=== PATIENT | male | born 1945 | race Caucasian/White ===

== ENCOUNTER 2021-04-20 11:04 | Outpatient (CLI) | payer MEDICARE, SELFPAY ==
--- NOTE | 2021-04-20 10:30 | DI.RAD_ITS ---
Exam(s) XR KNEE RT 3V AP,LAT,LASHON EXAM: XR KNEE RT 3V AP,LAT,LASHON CLINICAL HISTORY: pain in knee for 3-4 years. TECHNIQUE: 2D digital imaging was performed. COMPARISON: No exams were available for comparison FINDINGS: BONES: No acute fracture is present. No bony destructive lesion is seen. JOINTS: The knee is normally aligned. No joint effusion is seen. moderate narrowing lateral femoral tibial joint. Mild to moderate periarticular spurring throughout. SOFT TISSUE: Vascular calcification.. IMPRESSION: Degenerative changes greatest of the lateral femoral tibial joint. DATA REPOSITORY: RADIATION DOSE DELIVERED:
== END 2021-04-20 11:05 | disposition home or self-care (01) ==
LOC: DIORS 11:04
PROVIDERS: PCP Family Medicine; Referring Provider Family Medicine; Visit Provider Student in an Organized Health Care Education/Training Program
DX: M25.561 Pain in right knee (principal); M17.11 Unilateral primary osteoarthritis, right knee
CPT/HCPCS: 20610; 73562; 99203; J1040

== ENCOUNTER → 2021-07-16 13:57 | Outpatient (BNVA) | payer MEDICARE, SELFPAY | PROVIDERS: PCP Family Medicine; Referring Provider Family Medicine; Visit Provider Psychiatry & Neurology Neurology | DX: R29.2 Abnormal reflex (principal); M47.12 Other spondylosis with myelopathy, cervical region | CPT/HCPCS: 99214 ==

== ENCOUNTER → 2021-09-22 09:57 | Outpatient (BNVA) | payer MEDICARE, SELFPAY | PROVIDERS: PCP Family Medicine; Referring Provider Family Medicine; Visit Provider Psychiatry & Neurology Neurology | DX: M47.12 Other spondylosis with myelopathy, cervical region (principal); R29.2 Abnormal reflex | CPT/HCPCS: 99214 ==

== ENCOUNTER → 2021-10-19 10:11 | Outpatient (BNVA) | payer MEDICARE, SELFPAY | PROVIDERS: PCP Family Medicine; Referring Provider Family Medicine; Visit Provider Psychiatry & Neurology Neurology | DX: R26.81 Unsteadiness on feet (principal); M47.12 Other spondylosis with myelopathy, cervical region; M48.061 Spinal stenosis, lumbar region without neurogenic claudication; R29.2 Abnormal reflex; R41.3 Other amnesia | CPT/HCPCS: 99215 ==

== ENCOUNTER → 2021-11-25 12:22 | Outpatient (BNVA) | payer MEDICARE, SELFPAY | PROVIDERS: PCP Family Medicine; Referring Provider Family Medicine; Visit Provider Psychiatry & Neurology Neurology | DX: R29.2 Abnormal reflex (principal); M47.12 Other spondylosis with myelopathy, cervical region; M48.061 Spinal stenosis, lumbar region without neurogenic claudication; Z79.82 Long term (current) use of aspirin; R41.3 Other amnesia | CPT/HCPCS: 99214 ==

== ENCOUNTER → 2021-12-28 13:12 | Outpatient (BNVA) | payer MEDICARE, SELFPAY | PROVIDERS: PCP Family Medicine; Referring Provider Family Medicine; Visit Provider Psychiatry & Neurology Neurology | DX: R29.2 Abnormal reflex (principal); M47.12 Other spondylosis with myelopathy, cervical region; G62.89 Other specified polyneuropathies; M48.061 Spinal stenosis, lumbar region without neurogenic claudication; R26.81 Unsteadiness on feet; R41.3 Other amnesia | CPT/HCPCS: 95885; 95909; 99214 ==

== ENCOUNTER 2022-05-18 02:17 | Outpatient (CLI) | payer MEDICARE, SELFPAY ==
[2022-05-18 09:01] LABS: HCT 42.4 % (40.0-50.0); HGB 14.6 g/dL (13.5-17.5); MCH 34.2 pg (27.0-33.0); MCHC 34.4 % (32.0-36.0); MCV 99 fL (80-95); MPV 9.5 fL (8.0-11.0); Platelet Count 154 10^3/uL (130-400); RBC 4.27 10^6/uL (4.36-5.78); RDW 12.8 % (11.8-14.1); WBC 5.24 10^3/uL (4.4-10.8)
[2022-05-18 10:00] LABS: ALT 39 U/L (16-63); AST 25 U/L (15-37); Albumin 3.5 g/dL (3.4-5.0); Alkaline Phosphatase 76 U/L (46-116); Anion Gap 4.6 mmol/L (3-11); BUN 16 mg/dL (7-18); Bilirubin, Total 0.7 mg/dL (0.2-1.0); CO2 30.4 mmol/L (21.0-32.0); Calcium 8.8 mg/dL (8.5-10.1); Calculated LDL 98 mg/dL (<100); Chloride 107 mmol/L (98-107); Cholesterol 156 mg/dL (<200); Glucose 90 mg/dL (74-106); HDL Cholesterol 43 mg/dL (40-60); Potassium 4.4 mmol/L (3.5-5.1); Sodium 142 mmol/L (136-145); Total Protein 7.6 g/dL (6.4-8.2); Triglyceride 76 mg/dL (<150)
[2022-05-18 18:41] LABS: PSA, Screening 5.3 ng/mL (<=6.5)
== END 2022-05-18 02:18 | disposition home or self-care (01) ==
LOC: LBO 02:17
PROVIDERS: PCP Nurse Practitioner; Visit Provider Nurse Practitioner
DX: E78.5 Hyperlipidemia, unspecified (principal); N40.0 Benign prostatic hyperplasia without lower urinary tract symptoms; R97.20 Elevated prostate specific antigen [PSA]; Z12.5 Encounter for screening for malignant neoplasm of prostate
CPT/HCPCS: 36415; 80053; 80061; 84153; 85027

== ENCOUNTER → 2022-06-23 10:42 | Outpatient (BNVA) | payer MEDICARE, SELFPAY | PROVIDERS: PCP Nurse Practitioner; Visit Provider Psychiatry & Neurology Neurology | DX: M47.12 Other spondylosis with myelopathy, cervical region (principal); R29.2 Abnormal reflex; R41.3 Other amnesia; R26.81 Unsteadiness on feet; M48.061 Spinal stenosis, lumbar region without neurogenic claudication | CPT/HCPCS: 99214 ==

== ENCOUNTER 2022-09-07 16:13 | Outpatient (REF) | payer MEDICARE, SELFPAY ==
[2022-09-07 19:46] LABS: Vitamin D 25 Total 27.6 ng/mL (30-100)
[2022-09-07 19:57] LABS: TSH (W/Ref FT4) 1.07 uIU/mL (0.36-3.74); Vitamin B12 330 pg/mL (193-986)
[2022-09-10 11:45] LABS: Lyme Ab w Rflx to Lyme Confirm Negative (Negative)
== END 2022-09-07 16:14 | disposition home or self-care (01) ==
LOC: LBN 16:13
PROVIDERS: PCP Nurse Practitioner; Visit Provider Nurse Practitioner
DX: E55.9 Vitamin D deficiency, unspecified; R53.83 Other fatigue
CPT/HCPCS: 82306; 87798; 82607; 84443; 86618

== ENCOUNTER → 2023-05-10 11:21 | Outpatient (BNVA) | payer MEDICARE, SELFPAY | PROVIDERS: PCP Nurse Practitioner; Referring Provider Nurse Practitioner; Visit Provider Psychiatry & Neurology Neurology | DX: R29.2 Abnormal reflex (principal); M47.12 Other spondylosis with myelopathy, cervical region; R41.3 Other amnesia; M48.061 Spinal stenosis, lumbar region without neurogenic claudication; R26.81 Unsteadiness on feet | CPT/HCPCS: 99215 ==

== ENCOUNTER 2023-05-12 05:48 | Outpatient (CLI) | payer MEDICARE, SELFPAY ==
[2023-05-12 13:00] LABS: Vitamin B12 415 pg/mL (193-986)
[2023-05-12 13:42] LABS: Vitamin D 25 Total 26.9 ng/mL (30-100)
== END 2023-05-12 05:49 | disposition home or self-care (01) ==
LOC: LOS 05:48
PROVIDERS: PCP Nurse Practitioner; Visit Provider Nurse Practitioner Family
DX: E55.9 Vitamin D deficiency, unspecified (principal); E53.8 Deficiency of other specified B group vitamins
CPT/HCPCS: 36415; 82306; 82607

== ENCOUNTER → 2023-06-29 07:59 | Outpatient (BNVA) | payer MEDICARE, SELFPAY | PROVIDERS: PCP Nurse Practitioner; Referring Provider Nurse Practitioner; Visit Provider Nurse Practitioner Gerontology | DX: N40.1 Benign prostatic hyperplasia with lower urinary tract symptoms (principal); R39.12 Poor urinary stream; R97.20 Elevated prostate specific antigen [PSA] | CPT/HCPCS: 51798; 81003; 99214 ==

== ENCOUNTER → 2023-07-07 10:15 | Outpatient (BNVA) | payer MEDICARE, SELFPAY | PROVIDERS: PCP Nurse Practitioner; Referring Provider Nurse Practitioner; Visit Provider Student in an Organized Health Care Education/Training Program | DX: M17.11 Unilateral primary osteoarthritis, right knee (principal) | CPT/HCPCS: 99213 ==

== ENCOUNTER 2023-10-12 02:25 | Outpatient (CLI) | payer MEDICARE, SELFPAY ==
[2023-10-12 10:15] LABS: HCT 43.4 % (40.0-50.0); MCH 34.7 pg (27.0-33.0); MCHC 34.6 % (32.0-36.0); MCV 101 fL (80-95); MPV 9.9 fL (8.0-11.0); Platelet Count 148 10^3/uL (130-400); RBC 4.32 10^6/uL (4.36-5.78); RDW 12.7 % (11.8-14.1); RDW-SD 47.2 fL; WBC 5.82 10^3/uL (4.4-10.8)
[2023-10-12 11:16] LABS: ALT 22 U/L (16-63); AST 22 U/L (15-37); Albumin 3.8 g/dL (3.4-5.0); Alkaline Phosphatase 69 U/L (46-116); Anion Gap 9.5 mmol/L (3-11); BUN 20 mg/dL (7-18); CO2 26.5 mmol/L (21.0-32.0); CREATININE 1.1 mg/dL (0.70-1.30); Calcium 8.9 mg/dL (8.5-10.1); Calculated LDL 87 mg/dL (<100); Chloride 106 mmol/L (98-107); Cholesterol 158 mg/dL (<200); Estimated GFR 69.14 (mL/min/1.73m2); Glucose 97 mg/dL (74-106); HDL Cholesterol 51 mg/dL (40-60); Potassium 4.3 mmol/L (3.5-5.1); Sodium 142 mmol/L (136-145); Total Protein 7.2 g/dL (6.4-8.2); Triglyceride 101 mg/dL (<150); Vitamin D 25 Total 30.9 ng/mL (30-100)
[2023-10-12 19:01] LABS: PSA, Diagnostic 5.6 ng/mL (<=6.5)
== END 2023-10-12 02:26 | disposition home or self-care (01) ==
LOC: LBO 02:25
PROVIDERS: PCP Nurse Practitioner; Visit Provider Nurse Practitioner Gerontology
DX: N40.0 Benign prostatic hyperplasia without lower urinary tract symptoms (principal); R97.20 Elevated prostate specific antigen [PSA]; E78.5 Hyperlipidemia, unspecified; R41.3 Other amnesia; E55.9 Vitamin D deficiency, unspecified
CPT/HCPCS: 36415; 80053; 80061; 82306; 85027; 84153

== ENCOUNTER → 2023-10-19 09:53 | Outpatient (BNVA) | payer MEDICARE, SELFPAY | PROVIDERS: PCP Nurse Practitioner; Referring Provider Nurse Practitioner; Visit Provider Nurse Practitioner Gerontology | DX: N40.0 Benign prostatic hyperplasia without lower urinary tract symptoms (principal); R97.20 Elevated prostate specific antigen [PSA] | CPT/HCPCS: 51798; 99213 ==

== ENCOUNTER 2023-11-23 01:23 | Outpatient (CLI) | payer MEDICARE, SELFPAY ==
--- NOTE | 2023-11-23 07:00 | DI.RAD_ITS ---
Exam(s) XR KNEE LT 3V AP,LAT,LASHON EXAM: XR KNEE LT 3V AP,LAT,LASHON CLINICAL HISTORY: left knee pain,M25.562. TECHNIQUE: 2D digital imaging was performed. Three views. COMPARISON: CR XR KNEE RT 3V AP,LAT,LASHON from 04/20/2021 FINDINGS: BONES: No acute fracture is present. No bony destructive lesion is seen. JOINTS: The knee is normally aligned. No joint effusion is seen. The joint spaces are maintained. Minimal degenerative changes. SOFT TISSUE: Normal. IMPRESSION: Minimal degenerative changes. DATA REPOSITORY: RADIATION DOSE DELIVERED:
== END 2023-11-23 01:43 ==
LOC: DI 01:23
PROVIDERS: PCP Nurse Practitioner; Visit Provider Nurse Practitioner
DX: M25.562 Pain in left knee (principal)
CPT/HCPCS: 73562

== ENCOUNTER → 2023-12-01 08:49 | Outpatient (BNVA) | payer MEDICARE, SELFPAY | PROVIDERS: PCP Nurse Practitioner; Referring Provider Nurse Practitioner; Visit Provider Psychiatry & Neurology Neurology | DX: M48.061 Spinal stenosis, lumbar region without neurogenic claudication (principal); M54.16 Radiculopathy, lumbar region; R26.81 Unsteadiness on feet; R41.3 Other amnesia | CPT/HCPCS: 95885; 95887; 95908; 99215 ==

== ENCOUNTER 2023-12-27 01:22 | Outpatient (CLI) | payer MEDICARE, SELFPAY ==
--- NOTE | 2023-12-27 06:30 | DI.MRI_ITS ---
Exam(s) MR LOWER JOINT LT WO EXAM: MR LOWER JOINT LT WO CLINICAL HISTORY: Left knee pain,falls,m25.562,r29.6. TECHNIQUE: Multiplanar multisequence MRI was performed. COMPARISON: CR XR KNEE LT 3V AP,LAT,LASHON from 11/23/2023 FINDINGS: BONES: There is no fracture or contusion pattern. JOINTS: At the patellofemoral joint there is moderate cartilage thinning and subchondral edema presen t. There is also mild thinning of the articular cartilage in the medial femoral tibial joint. No ef fusion is present. TENDONS: Extensor mechanism: Unremarkable. Medial retinaculum: Unremarkable. Lateral retinaculum: Unremarkable. Popliteus: Unremarkable. MUSCLES: Unremarkable. MENISCI: There is a large tear of the body and posterior horn of the medial meniscus. There is degen eration of the lateral meniscus. SOFT TISSUES: There is mild edema seen in the soft tissues around the knee. There is a small poplite al cyst. LIGAMENTS: Anterior Cruciate: Unremarkable. Posterior Cruciate: Unremarkable. Medial Collateral:Unremarkable. Lateral Collateral: Unremarkable. OTHER: IMPRESSION: 1. Large tear of the body and posterior horn of the medial meniscus. 2. No evidence of a ligament tear. 3. 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 4. No evidence of a fracture. 5. Small popliteal cyst and edema in the soft tissues around the knee. DATA REPOSITORY:
== END 2023-12-27 01:42 ==
LOC: DI 01:22
PROVIDERS: PCP Nurse Practitioner; Visit Provider Nurse Practitioner
DX: M23.222 Derangement of posterior horn of medial meniscus due to old tear or injury, left knee (principal); R29.6 Repeated falls
CPT/HCPCS: 73721

== ENCOUNTER 2024-01-16 01:28 | Outpatient (CLI) | payer MEDICARE, SELFPAY ==
--- NOTE | 2024-01-16 06:15 | DI.CT_ITS ---
Exam(s) CT HEAD WO EXAM: CT HEAD WO CLINICAL HISTORY: falls, dizziness for a few months.R29.6,R42. TECHNIQUE: Imaging Protocol: Axial computed tomography images with coronal and sagittal reformatted images were created and reviewed COMPARISON: MR MR C SPINE WO CONTRAST from 04/25/2015 FINDINGS: Ventricles and Extra axial spaces: The ventricular size appears prominent compared to the sulcal size raising the question of NPH. Hemorrhage: None. Cerebral parenchyma: No evidence of an acute territorial infarct. No mass effect is identified. The do appear to be subtle areas of decreased attenuation in the white matter suggesting chronic microva scular ischemic disease. Midline shift: None. Brainstem/Cerebellum: Normal. Calvarium: Normal. Visualized Paranasal sinuses/Mastoids: Clear. Soft Tissues: Unremarkable. IMPRESSION: Prominence of the ventricles seemingly out of proportion to the sulcal size raising the question of N PH. MRI should be considered for further evaluation. RADIATION DOSE DELIVERED: 862.46mGy.cm Total DLP DATA REPOSITORY: All CT scans at this facility are submitted to the National Radiology Data Registry (NRDR) Dose Index Registry (DIR) with the [employer] (ACR). RADIATION OPTIMIZATION: All CT scans at this facility use at least one of these dose optimization te chniques: automated exposure control; mA and/or kV adjustment per patient size (includes targeted exa ms where dose is matched to clinical indication); or iterative reconstruction.
--- NOTE | 2024-01-16 06:15 | DI.MRI_ITS ---
Exam(s) MR LOWER JOINT RT WO EXAM: MR LOWER JOINT RT WO CLINICAL HISTORY: right knee pain,RECURRENT RT KNEE INSTABILITY, M23.51,M25.561. TECHNIQUE: Multiplanar multisequence MRI was performed. COMPARISON: There are no priors for comparison. FINDINGS: BONES: There is no fracture or contusion pattern. JOINTS: In the lateral femoral tibial joint, there is marked loss of the articular cartilage, endplat e osteophytes and subchondral edema. There is also thinning of the articular cartilage overlying the medial femoral condyle. Small osteophytes are also seen in the medial femoral tibial joint and the patellofemoral joint. There is a small amount of fluid in the joint space. TENDONS: Extensor mechanism: Unremarkable. Medial retinaculum: Unremarkable. Lateral retinaculum: Unremarkable. Popliteus: Unremarkable. MUSCLES: Unremarkable. MENISCI: There is degenerative signal seen in the body and posterior horn of the medial meniscus. Th ere is hyperintense signal seen in the posterior horn of the medial meniscus on the sagittal images ( image 31) consistent with a tear. There is significant loss in size and abnormal signal seen through out the lateral meniscus predominantly in the body and posterior horn. This is consistent with menis callie tear. SOFT TISSUES: There is edema seen in the soft tissues around the knee. There is a small fluid collec tion seen arising from the proximal tibial fibular joint. LIGAMENTS: Anterior Cruciate: The distal anterior cruciate ligament is poorly defined with abnormal signal which may represent a chronic tear. Posterior Cruciate: Unremarkable. Medial Collateral:Unremarkable. Lateral Collateral: Unremarkable. OTHER: IMPRESSION: 1. Chronic loss of volume and abnormal signal seen throughout the lateral meniscus consistent with a tear. 2. Hyperintense signal seen in the posterior horn of the medial meniscus consistent with a tear. Und erlying degenerative changes are also seen in the medial meniscus. 3. Abnormal thickening and abnormal signal seen within the distal anterior cruciate ligament suspicio us for a tear. 4. Arthritic changes in the knee particularly involving the lateral femoral tibial joint. DATA REPOSITORY:
== END 2024-01-16 01:48 ==
LOC: DI 01:28
PROVIDERS: PCP Nurse Practitioner; Visit Provider Nurse Practitioner
DX: S83.281A Other tear of lateral meniscus, current injury, right knee, initial encounter (principal); X58.XXXA Exposure to other specified factors, initial encounter
CPT/HCPCS: 73721; 70450

== ENCOUNTER 2024-01-31 01:36 | Outpatient (CLI) | payer MEDICARE, SELFPAY ==
--- NOTE | 2024-01-31 06:45 | DI.MRI_ITS ---
Exam(s) MR BRAIN WO EXAM: MR BRAIN WO CLINICAL HISTORY: ?NPH, gait disturbances, urinary incont, memory impairment,abnl head ct, TECHNIQUE: Multiplanar multisequence MRI of the brain was performed. COMPARISON: CT CT HEAD WO from 01/16/2024 FINDINGS: CEREBRAL PARENCHYMA: There is no evidence of intracranial hemorrhage, mass effect, or shift of midline structures. There are no extra-axial fluid collections. There is no significant focal signal abnormality in the cerebellar hemispheres nor within the juan, m idbrain, and thalami. There is a small 3 mm focus of FLAIR bright signal abnormality in the posterior left periventricular white matter, not associated with hemorrhage nor surrounding edema nor restricted diffusion. The size of lateral and 3rd ventricles is again noted be prominent when compared to the size of the o verlying cortical sulci. Suspicious for normal pressure hydrocephalus. There does not appear to be abnormal signal around both lateral ventricles. There is no significant focal signal abnormality evident on diffusion imaging to suggest acute ischem ic event. SWI imaging reveals no evidence of microhemorrhages. PITUITARY GLAND: No mass nor parasellar abnormality. No obvious abnormality in the cavernous sinuses. FLOW VOIDS: The expected flow void are noted. No evidence of obvious aneurysm nor obvious vascular ma lformation. The right vertebral artery is dominant. Left vertebral artery at the skull base does not contribute to the formation of the basilar artery. PARANASAL SINUSES: There is some mild mucosal thickening in the right maxillary sinus, not associated with a fluid level. Left maxillary sinus and other paranasal sinuses are clear, as are the mastoid air cells. ORBITS: No obvious findings. Previous bilateral cataract surgery. IMPRESSION: There is enlargement of the lateral and 3rd ventricles. Normal size 4th ventricle. Correlation with any clinical signs of normal pressure hydrocephalus recommended. Other consideration would be for a queduct stenosis at the level the midbrain tectum. There is no mass seen at this level. There is a single small focus of FLAIR bright signal abnormality in the left periventricular white ma tter, not associated with hemorrhage, surrounding edema, nor restricted diffusion. There is no evide nce of hemorrhage nor acute ischemic event. DATA REPOSITORY:
== END 2024-01-31 01:56 ==
LOC: DI 01:36
PROVIDERS: PCP Nurse Practitioner; Visit Provider Nurse Practitioner
DX: R93.0 Abnormal findings on diagnostic imaging of skull and head, not elsewhere classified (principal)
CPT/HCPCS: 70551

== ENCOUNTER 2024-02-02 10:03 | Outpatient (CLI) | payer MEDICARE, SELFPAY ==
--- NOTE | 2024-02-02 09:30 | DI.MRI_ITS ---
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 Both noninfused and contrast i nfused sequences were performed. IV Contrast injected was 17 cc Dotarem. COMPARISON: MR MR BRAIN WO from 01/31/2024 FINDINGS: CEREBRAL PARENCHYMA: Again noted is prominence the lateral and 3rd ventricles when compared to the si ze of the overlying cortical sulci but with out significant periventricular signal abnormality as is often seen in normal pressure hydrocephalus. There is again noted small 3 mm focus of FLAIR bright s ignal abnormality in the posterior left periventricular white matter which is not associated with hem orrhage, surrounding edema, nor restricted diffusion and which also does not exhibit enhancement foll owing contrast injection. There are no new foci of signal abnormality in the brain. No areas of restricted diffusion. There are no ring enhancing lesions and no abnormal meningeal enhancement. There are no lesions seen in th e region of the midbrain and tectum nor evidence of pineal gland abnormality nor abnormal mass in the quadrigeminal cistern. No evidence of mass within the juan nor within the cerebellar hemispheres. There is no significant cerebellar tonsillar ectopia. The T2 weighted thin sub mm slice thickness images reveal no evidence of mass in the cerebellopontine angles nor intra canalicular mass within the internal auditory canals and the appearance of the trig eminal nerves and Meckel's caves appear unremarkable. There does not appear to be mass with in nor c ompressing the aqueduct of Sylvius. The size of the 4th ventricle also appears slightly prominent. No evidence of microhemorrhages on SWI. PITUITARY GLAND: No mass nor parasellar abnormality. No obvious abnormality in the cavernous sinuses. FLOW VOIDS: The expected flow void are noted. No evidence of obvious aneurysm nor obvious vascular ma lformation. PARANASAL SINUSES: The visualized paranasal sinuses appear unremarkable. ORBITS: Previous bilateral cataract surgery. No obvious abnormal findings. IMPRESSION: 1. There is no evidence of mass within the aqueduct of [place] nor evidence of adjacent mass compress ing the aqueduct of [place] to explain the enlargement of the lateral and 3rd ventricles. 2. There are no ring enhancing nor other enhancing intra-axial lesions in the brain and there is no abnormal meningeal enhancement. 3. Small 3 mm nonspecific focus of signal abnormality in the posterior left periventricular white ma tter is again noted, not associated with hemorrhage, surrounding edema, enhancement, nor restricted d iffusion. DATA REPOSITORY:
[2024-02-02] MEDS: Normal Saline Flush 10 ML SYR IVP (15:32)
[2024-02-02] MEDS: Gadoterate meglumine 20 ML SYRINGE 17 ML IVP (15:33)
== END 2024-02-02 10:23 ==
LOC: DI 10:05
PROVIDERS: PCP Nurse Practitioner; Visit Provider Psychiatry & Neurology Neurology
DX: G91.1 Obstructive hydrocephalus (principal)
CPT/HCPCS: 70553

== ENCOUNTER → 2024-03-22 10:04 | Outpatient (BNVA) | payer MEDICARE, SELFPAY | PROVIDERS: PCP Nurse Practitioner; Referring Provider Nurse Practitioner; Visit Provider Student in an Organized Health Care Education/Training Program | DX: M47.12 Other spondylosis with myelopathy, cervical region (principal); M48.061 Spinal stenosis, lumbar region without neurogenic claudication; M17.11 Unilateral primary osteoarthritis, right knee; R26.81 Unsteadiness on feet; S83.242A Other tear of medial meniscus, current injury, left knee, initial encounter; X58.XXXA Exposure to other specified factors, initial encounter | CPT/HCPCS: 20610; J1010 ==

== ENCOUNTER 2024-04-12 01:11 | Outpatient (CLI) | payer MEDICARE, SELFPAY ==
[2024-04-12 18:36] LABS: PSA, Diagnostic 6.2 ng/mL (<=6.5)
[2024-04-13 10:06] LABS: Lyme Ab w Rflx to Lyme Confirm Negative (Negative)
[2024-04-15 16:41] LABS: Anaplasma phagocytophilum Negative (Negative); B. miyamotoi PCR Negative (Negative); Babesia divergens/MO-1 Negative (Negative); Babesia duncani Negative (Negative); Babesia microti Negative (Negative); Ehrlichia chaffeensis Negative (Negative); Ehrlichia ewingii/canis Negative (Negative); Ehrlichia muris eauclairensis Negative (Negative)
== END 2024-04-12 01:12 | disposition home or self-care (01) ==
LOC: LBO 01:11
PROVIDERS: PCP Nurse Practitioner; Visit Provider Nurse Practitioner Gerontology
DX: R97.20 Elevated prostate specific antigen [PSA] (principal); N40.0 Benign prostatic hyperplasia without lower urinary tract symptoms; R42 Dizziness and giddiness; R29.6 Repeated falls
CPT/HCPCS: 36415; 87798; 84153; 86618

== ENCOUNTER → 2024-04-25 11:02 | Outpatient (BNVA) | payer MEDICARE, SELFPAY | PROVIDERS: PCP Nurse Practitioner; Referring Provider Nurse Practitioner; Visit Provider Nurse Practitioner Gerontology | DX: N40.0 Benign prostatic hyperplasia without lower urinary tract symptoms (principal); R97.20 Elevated prostate specific antigen [PSA] | CPT/HCPCS: 51798; 99213 ==

== ENCOUNTER 2024-06-04 07:54 | Outpatient (CLI) | payer MEDICARE, SELFPAY ==
--- NOTE | 2024-06-04 07:45 | RT.EKG_ITS ---
APPROVED REPORT Exam: Resting ECG Reason for Exam: pre-op exam Patient Location: O HR:55 bpm ECG Measurements Heart Rate 55 AXIS WV 204 P 38 QRSd 86 QRS -3 QT 394 T 25 QTc 377 Conclusion Sinus rhythm...normal P axis, V-rate 50- 99 Abnormal R-wave progression, early transition...QRS area>0 in V2 Otherwise normal ECG
== END 2024-06-04 07:55 | disposition home or self-care (01) ==
LOC: DI.KIM 07:55
PROVIDERS: PCP Nurse Practitioner; Visit Provider Nurse Practitioner
DX: Z01.818 Encounter for other preprocedural examination (principal)
CPT/HCPCS: 93010

== ENCOUNTER 2024-06-05 03:55 | Outpatient (CLI) | payer MEDICARE, SELFPAY ==
[2024-06-05 10:26] LABS: Abs Immature Grans 0.02 10^3/uL (0.0-0.06); Absolute Basophil Count 0.02 10^3/uL (0.0-0.2); Absolute Eosinophil Count 0.34 10^3/uL (0.0-0.7); Absolute Lymphocyte Count 1.19 10^3/uL (1.2-3.4); Absolute Monocyte Count 0.46 10^3/uL (0.1-0.8); Absolute Neutrophil Count 3.52 10^3/uL (1.2-6.7); Basophils % 0.4 %; Eosinophils % 6.1 %; HCT 46.7 % (40.0-50.0); HGB 15.9 g/dL (13.5-17.5); Immature Grans % 0.4 %; Lymphocytes % 21.4 %; MCH 34.6 pg (27.0-33.0); MCV 102 fL (80-95); MPV 9.7 fL (8.0-11.0); Monocytes % 8.3 %; Neutrophils % 63.4 %; Platelet Count 160 10^3/uL (130-400); RBC 4.59 10^6/uL (4.36-5.78); RDW 13.2 % (11.8-14.1); RDW-SD 49.6 fL; WBC 5.55 10^3/uL (4.4-10.8)
[2024-06-05 10:30] LABS: Bilirubin Negative (Negative); Blood Negative (Negative); Clarity Clear (Clear); Glucose Negative (Negative); Ketones Negative (Negative); Leukocyte Esterase Negative (Negative); Nitrite Negative (Negative); Specific Gravity 1.025 (1.005-1.025); Urobilinogen 0.2 mg/dL (Up to 0.2)
[2024-06-05 10:38] LABS: WBC 0-2 HPF (0-5)
[2024-06-05 10:39] LABS: Bacteria Negative HPF (Negative); C & S Indicated? No; Casts 0-2 Hyaline LPF (Negative); Crystals Negative HPF (Negative); Epithelial Cells Rare HPF (Negative); Mucus Trace (Negative); RBC Negative HPF (0-2)
[2024-06-05 11:55] LABS: ALT 32 U/L (16-63); AST 20 U/L (15-37); Albumin 3.8 g/dL (3.4-5.0); Alkaline Phosphatase 72 U/L (46-116); Anion Gap 5.1 mmol/L (3-11); BUN 19 mg/dL (7-18); Bilirubin, Total 0.8 mg/dL (0.2-1.0); CO2 30.9 mmol/L (21.0-32.0); Calcium 9.3 mg/dL (8.5-10.1); Calculated LDL 116 mg/dL (<100); Chloride 108 mmol/L (98-107); Cholesterol 190 mg/dL (<200); Estimated GFR 77.04 (mL/min/1.73m2); Glucose 84 mg/dL (74-106); HDL Cholesterol 57 mg/dL (>or=40); Potassium 4.7 mmol/L (3.5-5.1); Sodium 144 mmol/L (136-145); Total Protein 7.5 g/dL (6.4-8.2); Triglyceride 85 mg/dL (<150)
== END 2024-06-05 03:56 | disposition home or self-care (01) ==
LOC: LBO 03:55
PROVIDERS: PCP Nurse Practitioner; Referring Provider Nurse Practitioner; Visit Provider Nurse Practitioner
DX: E78.5 Hyperlipidemia, unspecified (principal); Z01.818 Encounter for other preprocedural examination
CPT/HCPCS: 36415; 80053; 80061; 81003; 81015; 85025

== ENCOUNTER 2024-06-20 14:35 | Outpatient (CLI) | payer MEDICARE, SELFPAY ==
[2024-06-20 14:58] LABS: INR 1.1 (0.9-1.1); Prothrombin Time 11.4 sec (9.1-11.1)
== END 2024-06-20 14:36 | disposition home or self-care (01) ==
PROVIDERS: Internal Medicine; PCP Nurse Practitioner; Visit Provider Nurse Practitioner
DX: G91.2 (Idiopathic) normal pressure hydrocephalus (principal)
CPT/HCPCS: 36415; 85610

== ENCOUNTER → 2024-07-26 13:37 | Outpatient (BNVA) | payer MEDICARE, SELFPAY | PROVIDERS: PCP Nurse Practitioner; Referring Provider Nurse Practitioner; Visit Provider Student in an Organized Health Care Education/Training Program | DX: M17.0 Bilateral primary osteoarthritis of knee | CPT/HCPCS: 20610 ×2; J1010 ==

== ENCOUNTER 2024-10-24 12:54 | Outpatient (CLI) | payer MEDICARE, SELFPAY ==
[2024-10-24 18:05] LABS: PSA, Diagnostic 5.5 ng/mL (<=6.5)
== END 2024-10-24 12:55 | disposition home or self-care (01) ==
LOC: LBO 12:54
PROVIDERS: PCP Nurse Practitioner; Visit Provider Nurse Practitioner Gerontology
DX: R97.20 Elevated prostate specific antigen [PSA] (principal); N40.0 Benign prostatic hyperplasia without lower urinary tract symptoms
CPT/HCPCS: 36415; 84153

== ENCOUNTER → 2024-10-25 13:10 | Outpatient (BNVA) | payer MEDICARE, SELFPAY | PROVIDERS: PCP Nurse Practitioner; Referring Provider Nurse Practitioner; Visit Provider Student in an Organized Health Care Education/Training Program | DX: M17.0 Bilateral primary osteoarthritis of knee (principal) | CPT/HCPCS: 99214 ==

== ENCOUNTER → 2024-10-31 11:47 | Outpatient (BNVA) | payer MEDICARE, SELFPAY | PROVIDERS: PCP Nurse Practitioner; Referring Provider Nurse Practitioner; Visit Provider Nurse Practitioner Gerontology | DX: N40.0 Benign prostatic hyperplasia without lower urinary tract symptoms (principal); R97.20 Elevated prostate specific antigen [PSA] | CPT/HCPCS: 99213; 51798 ==

== ENCOUNTER → 2024-11-16 10:56 | Outpatient (BNVA) | payer MEDICARE, SELFPAY | PROVIDERS: PCP Nurse Practitioner; Referring Provider Nurse Practitioner; Visit Provider Physician Assistant | DX: M17.0 Bilateral primary osteoarthritis of knee (principal) | CPT/HCPCS: 20610; J1010 ==

== ENCOUNTER → 2024-12-20 03:49 | Outpatient (CLI) | payer MEDICARE, SELFPAY ==
--- NOTE | 2024-12-20 07:15 | DI.RAD_ITS ---
Exam(s) XR SHOULDER RT COMPLETE 2+V EXAM: XR SHOULDER RT COMPLETE 2+V CLINICAL HISTORY: right shoulder injury,pain,m25.511. TECHNIQUE: 2D digital imaging was performed. COMPARISON: No exams were available for comparison FINDINGS: Four views No evidence of fracture or dislocation or abnormal soft tissue calcifications. There are mild-moderate degenerative changes in the glenohumeral joint. Subacromial space is not diminished. AC joint appears unremarkable. Clavicle unremarkable. Bone density normal. No osseous lesions. Incidentally noted is a right-sided ventriculoperitoneal shunt. IMPRESSION: No acute osseous findings in the right shoulder. 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 DATA REPOSITORY: RADIATION DOSE DELIVERED:
--- NOTE | 2024-12-20 07:15 | DI.RAD_ITS ---
Exam(s) XR HUMERUS RT EXAM: XR HUMERUS RT CLINICAL HISTORY: right shoulder pain, injury.m25.511. TECHNIQUE: 2D digital imaging was performed. COMPARISON: No exams were available for comparison FINDINGS: Two views No evidence of fracture nor dislocation. Bone density normal. No osseous lesions. No radiopaque foreign bodies. IMPRESSION: No acute osseous findings in the right humerus. DATA REPOSITORY: RADIATION DOSE DELIVERED:
== END ==
LOC: DI 03:50
PROVIDERS: PCP Nurse Practitioner; Visit Provider Physician Assistant
DX: M19.011 Primary osteoarthritis, right shoulder (principal)
CPT/HCPCS: 73030; 73060

== ENCOUNTER → 2024-12-26 13:52 | Outpatient (BNVA) | payer MEDICARE, SELFPAY | PROVIDERS: Referring Provider Nurse Practitioner; Visit Provider Student in an Organized Health Care Education/Training Program | DX: M19.011 Primary osteoarthritis, right shoulder (principal); M75.101 Unspecified rotator cuff tear or rupture of right shoulder, not specified as traumatic; W19.XXXA Unspecified fall, initial encounter | CPT/HCPCS: 99213 ==

== ENCOUNTER 2025-02-18 00:48 | Outpatient (CLI) | payer MEDICARE, SELFPAY ==
[2025-02-18 12:28] LABS: HCT 43.9 % (40.0-50.0); HGB 15.7 g/dL (13.5-17.5); MCH 35.4 pg (27.0-33.0); MCHC 35.8 % (32.0-36.0); MCV 99 fL (80-95); MPV 9.6 fL (8.0-11.0); Platelet Count 210 10^3/uL (130-400); RBC 4.44 10^6/uL (4.36-5.78); RDW 12.3 % (11.8-14.1); RDW-SD 44.8 fL; WBC 5.71 10^3/uL (4.4-10.8)
[2025-02-18 12:53] LABS: Anion Gap 7.4 mmol/L (3-11); BUN 19 mg/dL (9-23); CO2 26.6 mmol/L (20.0-31.0); Calcium 8.7 mg/dL (8.3-10.6); Chloride 108 mmol/L (98-107); Glucose 92 mg/dL (74-106); Potassium 4.6 mmol/L (3.5-5.1); Sodium 142 mmol/L (136-145)
== END 2025-02-18 00:49 | disposition home or self-care (01) ==
LOC: LBO 00:48
PROVIDERS: Visit Provider Student in an Organized Health Care Education/Training Program
DX: M17.11 Unilateral primary osteoarthritis, right knee (principal); Z01.818 Encounter for other preprocedural examination
CPT/HCPCS: 80048; 85027

== ENCOUNTER 2025-02-18 15:27 | Outpatient (CLI) | payer MEDICARE, SELFPAY ==
--- NOTE | 2025-02-18 10:15 | DI.RAD_ITS ---
Exam(s) XR KNEE RT 1V XR STANDING ALIGNMENT EXAM: XR STANDING ALIGNMENT CLINICAL HISTORY: OA R KNEE. TECHNIQUE: 2D digital imaging was performed. Standing AP views were performed from the pelvis through the ankles. Weight-bearing lateral view of the right knee. COMPARISON: CR XR KNEE LT 3V AP,LAT,LASHON from 11/23/2023 CR XR KNEE RT 1V from 02/18/2025 FINDINGS: BONES: No acute fracture is present. No bony destructive lesion is seen. Leg length discrepancy: No significant overall leg length discrepancy. JOINTS: Knees: The left knee joint spaces are maintained. There is mild narrowing and periarticular spurring at the lateral femoral tibial joint of the right knee. There is also spurring at the articular aspect of the patella. There is a small small joint effusion. The ankle joints are unremarkable. The hip joints are unremarkable. SOFT TISSUE: Bilateral lower leg and ankle edema. Tubing noted in the right side of the pelvis which may represent ventriculoperitoneal shunt tubing. IMPRESSION: [id number] degenerative changes of the lateral femoral tibial joint and patellofemoral joint spaces of the right knee. . No significant leg length discrepancy. DATA REPOSITORY: RADIATION DOSE DELIVERED:
== END 2025-02-18 15:28 | disposition home or self-care (01) ==
LOC: DIORS 15:27
PROVIDERS: Visit Provider Physician Assistant
DX: Z01.818 Encounter for other preprocedural examination (principal); M17.0 Bilateral primary osteoarthritis of knee
CPT/HCPCS: 99024; 73560; 77073